=== PATIENT | female | born 1990 | race African-American/Black ===

== ENCOUNTER 2021-02-12 18:58 | Emergency (ER) | payer OTHER ==
[2021-02-13 22:43] LABS: SARS-CoV-2 PCR by NAA Not Detected (NotDetected)
== END 2021-02-12 19:51 | disposition home or self-care (01) ==
LOC: NAV ERS 18:58
DX: J06.9 Acute upper respiratory infection, unspecified (principal); Z20.822 Contact with and (suspected) exposure to COVID-19; Z87.19 Personal history of other diseases of the digestive system
CPT/HCPCS: 99283; U0003; U0005